=== PATIENT | female | born 1970 | race Caucasian/White ===

== ENCOUNTER 2024-04-11 14:23 | Emergency (ER) | payer OTHER, SELFPAY ==
[2024-04-11 14:24] VITALS: BP 145/84; PULSE 115; RESP 18; TEMP 35.8; O2SAT 98; BMI 31.1
--- NOTE | 2024-04-11 14:58 | EX.ED.DYSGE1 ---
HPI History of Present Illness Chief Complaint: Rash Informant: patient and family Narrative Narrative: Today patient noticed a red itchy sore area above her left upper arm PICC line insertion site. This was placed about a week ago for chemotherapy and IV Ancef, she has breast cancer and she had a Mediport for the chemotherapy but the Mediport site became infected so her Mediport was removed, and that is why she is on antibiotics. She states she had an initial dressing on the PICC and it was changed over to the OpSite that is there now. She denies any fevers or chills, drainage, or other systemic symptoms. [facility] Medical History Diabetes Breast cancer Allergy/AdvReac Type Severity Reaction Status Date / Time Penicillins Allergy Mild RASH Verified 04/11/24 14:24 Surgical History (Updated 04/11/24 @ 14:41 by Alla Ortiz) History of tonsillectomy Social History Smoking Status: Never smoker ROS ROS ED Constitutional Constitutional ED: Denies chills or fever(s) Musculoskeletal Musculoskeletal: Reports extremity pain Integumentary Reports rash EXAM Physical Exam Const Vital Signs: 04/11/24 14:24 Temperature 96.5 F L Temperature Source Temporal Pulse Rate 115 H Respiratory Rate 18 Blood Pressure 145/84 H Blood Pressure Mean 104 Pulse Ox 98 Oxygen Delivery Method Room Air Positive well nourished and well developed General Appearance ED: well developed and NAD HEENT Reports moist mucous membranes normocephalic and atraumatic Eyes PERRL and EOMs intact bilaterally Neck full ROM and supple Resp normal respiratory effort Back/Spine General Back: other FROM Extremity Extremity Narrative: Left upper arm PICC site is benign, there is a transparent OpSite over it and a pad of chlorhexidine gel. The dressing appears to be intact and sealed. Nursing cut the OpSite away from the affected area at the superior/proximal aspect of the dressing, where there is a arc of erythematous nontender skin, there is some epidermal skin disruption but no blistering or ecchymosis/purpura no bullae. It is not around the rest of the dressing. There is no lymphangitis. There is no drainage or fluctuance. All compartments are soft and nondistended and nontender. General Extremety ED: Negative for edema, pulses abnormal or tenderness General Extremity: Negative for edema or pulses abnormal Neuro oriented x3, CN's II-XII intact bilaterally and no sensory deficits noted Sensorium / Orientation: awake and alert Motor Exam: strength 5/5 throughout Skin no wounds Skin Narrative: Left upper arm rash see above MDM MDM MDM Narrative Medical decision making narrative: This appears to be a contact dermatitis probably related to the dressing that she had on before the OpSite. The adhesive may have pulled off a small amount of skin. There does not appear to be acute necrotizing infection, nor an infection at all. She is on IV Ancef which should keep her from getting infected. I think putting topical antibiotic ointment and hydrocortisone cream on the area would be reasonable, we trimmed the dressing away to keep it from contacting the affected area. She is due for a dressing change in 3 days, she is an out of town patient visiting family, they are comfortable with that plan. We discussed reasons to return. Discharge Plan Triage Chief Complaint: Rash ED Provider: Marcell Granado Dx/Rx/DC Orders Clinical Impression: Allergic reaction to adhesive Instructions: Understanding Contact Dermatitis Referrals: Doctor,Your [Non-Staff] - As Needed Activity Restrictions/Additional Instructions: Do not apply any adhesives or other dressings to the affected area. Okay to smear light layer of antibiotic ointment and hydrocortisone cream to the area. Print Language: Maltese Disposition Disposition: Home, Self Care
[2024-04-11] MEDS: BACITRACIN 15 GM Tube 1 APPLIC TOPICAL (15:03)
== END 2024-04-11 15:18 | disposition home or self-care (01) ==
LOC: ED 15:18
PROVIDERS: Emergency Provider Emergency Medicine; Referring Provider Emergency Medicine; Visit Provider Emergency Medicine
DX: T78.40XA Allergy, unspecified, initial encounter (principal); C34.90 Malignant neoplasm of unspecified part of unspecified bronchus or lung; E11.9 Type 2 diabetes mellitus without complications; X58.XXXA Exposure to other specified factors, initial encounter
CPT/HCPCS: 99282

== ENCOUNTER 2024-05-22 16:26 | Emergency (ER) | payer OTHER, SELFPAY ==
[2024-05-22 16:27] VITALS: BP 162/99; PULSE 100; RESP 15; TEMP 36; O2SAT 99; BMI 31.9
--- NOTE | 2024-05-22 17:00 | EX.ED.DYSGE1 ---
HPI <TANIA Marquez - Last Filed: 05/22/24 17:19> History of Present Illness Chief Complaint: Other, Pain/Inj Narrative Narrative: Patient is a 53-year-old female with history of breast cancer who is currently receiving chemotherapy in [place]. Patient currently was finished with her fourth treatment, she does have a port to the left chest however this got infected, this is why she has a PICC line to the left arm. Today she was trying to change the dressing when she excellently pulled part of the PICC line out. It did kink and she is here for evaluation. She denies any other injury. [facility] <TANIA Marquez - Last Filed: 05/22/24 17:19> [facility] Medical History Diabetes Breast cancer Allergy/AdvReac Type Severity Reaction Status Date / Time Penicillins Allergy Mild RASH Verified 05/22/24 16:27 Surgical History (Updated 04/11/24 @ 14:41 by Alla Ortiz) History of tonsillectomy Social History Smoking Status: Never smoker ROS <TANIA Marquez - Last Filed: 05/22/24 17:19> ROS ED ROS Narrative Constitutional: Negative for fever, chills, weight loss, weakness Eyes: Negative for vision loss, vision change, double vision ENT: Negative for any sore throat, ear pain, congestion Cardiovascular: Negative for any chest pain, tightness, palpitations Respiratory: Negative for any cough, sputum production, hemoptysis, dyspnea, dyspnea on exertion, orthopnea Gastrointestinal: Negative for any abdominal pain, nausea, vomiting, diarrhea, constipation, blood in stool, blood in vomit : Negative for any urinary frequency, dysuria, retention, blood in urine Muscle skeletal: Negative for any neck pain, back pain Neurological: Negative for any headache, syncope, dizziness Skin: Negative for any rashes, itching, abrasions, lacerations. Positive for PICC line to the left arm Psychiatric: Negative for any depression, anxiety, stress, suicidal ideation, homicidal ideation Hematologic: Negative for any excessive bruising, easy bleeding EXAM <TANIA Marquez - Last Filed: 05/22/24 17:19> Physical Exam Narrative Exam Narrative: Vital signs reviewed. HEET: Head normocephalic atraumatic, TMs clear bilaterally. Posterior pharynx is clear, moist mucous membranes. Nares clear bilaterally. Neck: Supple with no lymphadenopathy or tenderness. No signs of meningismus. Cardiac: Regular rate and rhythm no murmurs gallops or rubs, equal peripheral pulses bilaterally. Respiratory: Lungs clear to auscultation bilaterally. No chest tenderness. Abdomen: Soft, nontender, nondistended. No abdominal bruit or pulsatile masses. No hepatosplenomegaly Extremities: No peripheral edema, no signs of gross trauma or deformity. Active full range of motion of all extremities. Patient has a PICC line that is only partially pulled out 2 cm, there is a slight kink. There is no's evidence of significant deformity, there is no cellulitis. Neuro: Cranial nerves II through XII intact, no focal neurological deficits. Skin: Clean dry and intact with no rash, purpura, petechiae, vesicles or pustules. Backs/flank: No CVA tenderness, no midline spinal tenderness, no deformity. Psych: Normal mood and affect. No SI, HI or acute psychosis. Const Vital Signs: 05/22/24 16:27 05/22/24 16:34 Temperature 96.8 F L Temperature Source Temporal Pulse Rate 100 Respiratory Rate 15 Respiratory Pattern Normal Blood Pressure 162/99 H Blood Pressure Mean 120 Pulse Ox 99 Oxygen Delivery Method Room Air Positive well nourished and well developed General Appearance ED: well developed <Dr. Marc Rosa MD - Last Filed: 05/22/24 17:19> Physical Exam Const Vital Signs: 05/22/24 16:27 05/22/24 16:34 Temperature 96.8 F L Temperature Source Temporal Pulse Rate 100 Respiratory Rate 15 Respiratory Pattern Normal Blood Pressure 162/99 H Blood Pressure Mean 120 Pulse Ox 99 Oxygen Delivery Method Room Air MDM <TANIA Marquez - Last Filed: 05/22/24 17:19> MDM Treatment and Re-Evaluation :: Differential diagnosis includes however is not limited to: Site infection, cellulitis, PICC line removal Patient appears generally well, vital signs are stable, patient is nontoxic-appearing. Presenting to the emergency department for complaints of a problem with the left arm PICC line. This does look to be slightly out. This area was cleansed, placed back into the arm, was able to flush and did bring back blood. At this time, I do believe that the PICC line is appropriate for use. Patient is happy with the plan of care, she will continue to follow-up outpatient. She will look for any signs or symptoms of infection. All questions answered, stable for discharge. <Dr. Marc Rosa MD - Last Filed: 05/22/24 17:19> [facility] Narrative Medical decision making narrative: I have personally performed a face to face assessment of the patient and have reviewed the JUANITA Note. I performed a substantive portion of the visit including all aspects of the following. My mott findings include: History is 53-year-old female left arm PICC line partially pulled today. Came and evaluated. Exam is [well-appearing 53-year-old female. Vital signs stable afebrile. Lungs clear. Heart regular rhythm. Abdomen soft. Moving all 4 extremities. The nurses of clean the area just at the PICC line and placed a new OpSite over it. There is no swelling to her arm. There is no signs of infection. There is no redness or warmth. No lymphangitic streaking. Arm is neurovascularly intact.] Medical Decision Making [discharged home.] Other additions or changes: [None] Discharge Plan Triage Chief Complaint: Other, Pain/Inj ED Midlevel Provider: Maury Martins ED Provider: Marc Rosa Dx/Rx/DC Orders Primary Care Provider: Paula Bustillos Referrals: [facility] Doctor,Out of [Non-Staff] - Print Language: Ukrainian
== END 2024-05-22 17:22 | disposition home or self-care (01) ==
PROVIDERS: Emergency Provider Emergency Medicine; Visit Provider Emergency Medicine
DX: Z45.2 Encounter for adjustment and management of vascular access device (principal); C34.90 Malignant neoplasm of unspecified part of unspecified bronchus or lung; E11.9 Type 2 diabetes mellitus without complications
CPT/HCPCS: 99282; A4216

== ENCOUNTER → 2024-05-23 | Outpatient (CLI) | payer SELFPAY | END | disposition home or self-care (01) | PROVIDERS: Referring Provider Physician Assistant Surgical; Visit Provider Physician Assistant Surgical | DX: R30.0 Dysuria (principal) | CPT/HCPCS: 87086; 87088; 87186 ==

== ENCOUNTER → 2024-06-20 | Outpatient (CLI) | payer SELFPAY ==
[2024-06-20 13:23] LABS: Mucous, Urine 0 SEEN /hpf (<or=2+); Squamous Epithelial Cells - UA 0 SEEN /hpf (5-10)
[2024-06-20 13:33] LABS: Color, Urine Amber (Yellow); Glucose, Dipstick Normal (Normal); Ketone-Dipstick Negative (Negative); Leukocyte Esterase-Dipstick 25 /ul (Negative); Nitrite-Dipstick Positive (Negative); Occult Blood-Urine 25 /ul (Negative); Protein-Dipstick 30 mg/dl (Negative); Urine Clarity Sl. Cloudy (Clear); Urine Urobilinogen 8 mg/dl (Normal)
[2024-06-20 14:16] LABS: Urine Bilirubin Dipstick 6 mg/dL (Negative)
[2024-06-20 14:17] LABS: Bacteria 1+ /hpf (None Seen); White Blood Cells >100 SEEN /hpf (0-5)
[2024-06-20 14:19] LABS: Red Blood Cells-Urine 0-5 SEEN /hpf (0-5)
== END | disposition home or self-care (01) ==
LOC: LABSPEC 12:17
PROVIDERS: Referring Provider Physician Assistant Surgical; Visit Provider Physician Assistant Surgical
DX: R30.0 Dysuria (principal)
CPT/HCPCS: 81001; 87086; 87088; 87186